=== PATIENT | male | born 1970 | race African-American/Black ===

== ENCOUNTER 2018-11-22 23:53 | Inpatient (IN) | payer MEDICAID ==
[~2018-11-22] VITALS: Ht 188 cm; Wt 157.6 kg
[2018-11-23] MEDS ORDERED: MORPHINE SULFATE 4 MG/ML CPJ (NOT FOR IM USE) IV STA (06:27)
[2018-11-23] MEDS ORDERED: ONDANSETRON HCL 4MG/2ML INJ IV STA (06:27)
[2018-11-23] MEDS ORDERED: SODIUM CHLORIDE 0.9% 1000ML BAG (SEPSIS BOLUS) IV ONE (06:30)
[2018-11-23] MEDS ORDERED: VANCOMYCIN 1 G PREMIX 200 ML IV ONE (06:30)
[2018-11-23] MEDS ORDERED: TETANUS, DIPHTHERIA, PERTUSSIS VAC/PF 0.5ML (>7YR OLD) IM ONE (06:45)
[2018-11-23] MEDS ORDERED: CEFEPIME 500 MG in DEXTROSE 5% WATER 50 ML IV SCH (07:15)
[2018-11-23] MEDS ORDERED: CLINDAMYCIN 300 MG in DEXTROSE 5% WATER 50 ML IV ONE (07:15)
[2018-11-23 09:01] LABS: BASOPHILS % 0.3 % (0.0-2.0); HEMATOCRIT. 33.1 % (42.0-52.0); HEMOGLOBIN. 11.1 g/dL (14.0-18.0); LYMPHOCYTES % 10.6 % (20.0-50.0); MEAN CORPUSCULAR HEMOGLOBIN 29.4 pg (28.0-32.0); MEAN CORPUSCULAR VOLUME 87.8 fL (80.0-94.0); MEAN PLATELET VOLUME 9.9 fl (7.4-10.4); MONOCYTES % 13.3 % (2.0-8.0); NEUTROPHILS % 74.8 % (40.0-76.0); PLATELET 274 x1000/uL (130-400); RED BLOOD CELL COUNT 3.77 mill/uL (4.7-6.1)
[2018-11-23 09:08] LABS: CHLORIDE 102 mEq/L (98-107)
[2018-11-23 09:09] LABS: INR 1.1; PROTHROMBIN TIME 10.9 sec (9.1-11.1)
[2018-11-23 09:40] LABS: CLARITY URINE CLEAR (CLEAR); COLOR URINE DARK YELLOW (YELLOW); KETONES URINE TRACE (NEGATIVE); LEUKOCYTE ESTERASE URINE 1+ (NEGATIVE); NITRITE URINE POSITIVE (NEGATIVE); OCCULT BLOOD URINE 1+ (NEGATIVE); PH URINE 5.5 (4.5-8.0); PROTEIN URINE 3+ (NEGATIVE); SPECIFIC GRAVITY URINE 1.033 (1.005-1.030)
[2018-11-23] MEDS ORDERED: IOHEXOL-300 100 ML BOTTLE ONE (10:09)
[2018-11-23 19:35] VITALS: BP 167/102
[2018-11-23 20:06] VITALS: BP 167/102
[2018-11-23] MEDS ORDERED: AMLO10TA4 PO (20:15)
[2018-11-23] MEDS ORDERED: PULM50 IH (20:16)
[2018-11-23] MEDS ORDERED: MORPHINE SULFATE 4 MG/ML CPJ (NOT FOR IM USE) IV PRN (23:00)
[2018-11-24] VITALS: BP 151/91
[2018-11-24] MEDS: LEVOFLOXACIN 500MG PREMIX 100 ML IV SCH ×2 (00:21→23:40)
[2018-11-24 04:00] VITALS: BP 168/101
[2018-11-24 08:00] VITALS: BP 146/94
[2018-11-24] MEDS: ASPIRIN 325MG EC TABLET PO SCH (09:02)
[2018-11-24] MEDS: METOPROLOL TARTRATE 50MG TABLET PO SCH ×2 (09:02→20:13)
[2018-11-24] MEDS ORDERED: ONDANSETRON HCL 4MG/2ML INJ IV PRN (09:15)
[2018-11-24] MEDS ORDERED: ACETAMINOPHEN 325MG TABLET PO PRN (09:15)
[2018-11-24] MEDS: DOXYCYCLINE HYCLATE 100MG CAPSULE PO SCH ×2 (11:47→17:45)
[2018-11-24 12:00] VITALS: BP 143/91
[2018-11-24] MEDS ORDERED: HYDROCODONE/ACETAMINOPHEN 5/325MG TABLET PO PRN (12:15)
[2018-11-24 15:54] LABS: LDL CHOLESTEROL 112 mg/dL (5-100)
[2018-11-24 15:56] LABS: CREATINE KINASE 73 IU/L (39-308); HDL CHOLESTEROL 30 mg/dL (40-59)
[2018-11-24 15:57] LABS: CREATINE KINASE MB FRACTION 1.3 ng/mL (0.5-3.6)
[2018-11-24 16:00] VITALS: BP 140/88
[2018-11-24 20:00] VITALS: BP 168/93
[2018-11-24] MEDS: AMLODIPINE 5MG TABLET PO SCH (20:13)
[2018-11-25] VITALS: BP 147/92
[2018-11-25 04:00] VITALS: BP 146/88
[2018-11-25 06:02] LABS: BASOPHILS % 0.3 % (0.0-2.0); EOSINOPHILS % 2.1 % (0.0-5.0); HEMATOCRIT. 35.4 % (42.0-52.0); HEMOGLOBIN. 11.7 g/dL (14.0-18.0); LYMPHOCYTES % 11.2 % (20.0-50.0); MEAN CORPUSCULAR VOLUME 87.6 fL (80.0-94.0); MEAN PLATELET VOLUME 9.8 fl (7.4-10.4); MONOCYTES % 9.8 % (2.0-8.0); NEUTROPHILS % 76.6 % (40.0-76.0); PLATELET 312 x1000/uL (130-400); RED BLOOD CELL COUNT 4.04 mill/uL (4.7-6.1); RED CELL DISTRIBUTION WIDTH 15.3 % (11.6-14.6)
[2018-11-25 06:04] LABS: CHLORIDE 98 mEq/L (98-107)
[2018-11-25 08:00] VITALS: BP 153/89
[2018-11-25] MEDS: ASPIRIN 325MG EC TABLET PO SCH (09:20)
[2018-11-25] MEDS: AMLODIPINE 5MG TABLET PO SCH (09:20)
[2018-11-25] MEDS: METOPROLOL TARTRATE 50MG TABLET PO SCH (09:20)
[2018-11-25] MEDS: DOXYCYCLINE HYCLATE 100MG CAPSULE PO SCH (09:21)
[2018-11-25] MEDS ORDERED: LOSARTAN POTASSIUM 50 MG TABLET PO SCH (11:00)
[2018-11-25 12:00] VITALS: BP 157/89
[2018-11-25] MEDS ORDERED: CEFTRIAXONE SODIUM 250 MG/VIAL IM ONE (12:00)
[2018-11-25 12:50] VITALS: BP 154/88
[2018-11-27 04:10] LABS: CHLAMYDIA TRACHOMATIS NAA Negative (Negative); NEISSERIA GONORRHOEAE NAA Negative (Negative)
== END 2018-11-25 13:35 | disposition home or self-care (01) | DRG 720 ==
LOC: ER 23:53 → EDBEDREQSVC 11-23 10:06 → EDBEDREQTM 11-23 10:09 → EDBEDREQ 11-23 10:09 → 5WST 11-23 11:38 → EDBEDREQTM 11-23 11:58 → EDBEDREQ 11-23 11:58 → ENRESERV 11-23 16:28
PROVIDERS: ADMIT Internal Medicine; ATTEND Internal Medicine
DX: A41.9 Sepsis, unspecified organism (principal); E43 Unspecified severe protein-calorie malnutrition; E66.01 Morbid (severe) obesity due to excess calories; M35.00 Sjogren syndrome, unspecified; G62.9 Polyneuropathy, unspecified; Z68.41 Body mass index [BMI] 40.0-44.9, adult; A53.9 Syphilis, unspecified; D64.9 Anemia, unspecified; I10 Essential (primary) hypertension; J45.909 Unspecified asthma, uncomplicated; M19.90 Unspecified osteoarthritis, unspecified site; N39.0 Urinary tract infection, site not specified; N43.3 Hydrocele, unspecified; Z85.850 Personal history of malignant neoplasm of thyroid; Z88.1 Allergy status to other antibiotic agents; Z79.899 Other long term (current) drug therapy; Z88.0 Allergy status to penicillin
CPT/HCPCS: 36415; 71045; 72193; 76870; 80048; 80061; 82550; 82553; 83036; 83605; 84145; 84443; 84484; 86592; 86593; 86703; 86780; 87070; 87430; 87491; 87591; 90471; 90715; 93005; 93306; 93970; 93976; 96365; 96367; 96375; 99284; J0692; J1956; J2270; J2405; J3370; J3490; J7030; J7050; J7060; Q9967